=== PATIENT | male | born 1960 | race Caucasian/White ===

== ENCOUNTER 2017-09-27 09:54 | Outpatient (POV) | END 2017-09-27 17:00 | LOC: OUTPT 09:54 | PROVIDERS: ATTEND Otolaryngology | DX: H91.90 Unspecified hearing loss, unspecified ear (principal) ==

== ENCOUNTER 2017-10-04 08:31 | Outpatient (POV) | END 2017-10-04 17:00 | LOC: OUTPT 08:31 | PROVIDERS: ATTEND Otolaryngology | DX: H91.90 Unspecified hearing loss, unspecified ear (principal) ==